=== PATIENT | female | born 1985 | race African-American/Black ===

== ENCOUNTER 2016-11-13 00:46 | Emergency (ER) | payer MEDICAID ==
[~2016-11-13] VITALS: Ht 149.9 cm; Wt 39.0 kg
[2016-11-13 06:00] VITALS: BP 105/51
== END 2016-11-13 06:01 | disposition home or self-care (01) ==
LOC: ER 05:25
DX: R51 Headache (principal); H40.9 Unspecified glaucoma; F17.200 Nicotine dependence, unspecified, uncomplicated; F12.10 Cannabis abuse, uncomplicated
CPT/HCPCS: 70450; 81025; 99284

== ENCOUNTER 2018-10-31 22:28 | Emergency (ER) | payer OTHER ==
[~2018-10-31] VITALS: Ht 149.9 cm; Wt 81.0 kg
[2018-11-01 01:44] VITALS: BP 119/43
== END 2018-11-01 02:28 | disposition left against medical advice (07) ==
LOC: ER 22:28
DX: R51 Headache (principal); Z53.21 Procedure and treatment not carried out due to patient leaving prior to being seen by health care provider

== ENCOUNTER 2018-11-04 15:28 | Emergency (ER) | payer MEDICAID ==
[~2018-11-04] VITALS: Ht 149.9 cm; Wt 40.0 kg
[2018-11-04] MEDS ORDERED: METOCLOPRAMIDE HCL 10MG TABLET PO ONE (22:00)
[2018-11-04 22:29] LABS: CLARITY URINE TURBID (CLEAR); COLOR URINE RED (YELLOW); KETONES URINE TRACE (NEGATIVE); LEUKOCYTE ESTERASE URINE 2+ (NEGATIVE); NITRITE URINE POSITIVE (NEGATIVE); OCCULT BLOOD URINE 3+ (NEGATIVE); PROTEIN URINE 1+ (NEGATIVE); SPECIFIC GRAVITY URINE 1.022 (1.005-1.030)
[2018-11-04 23:05] LABS: *AMPHETAMINES SCREEN URINE NEGATIVE (NEGATIVE); *BARBITURATES SCREEN URINE NEGATIVE (NEGATIVE); *BENZODIAZEPINES SCREEN URINE NEGATIVE (NEGATIVE); *COCAINE SCREEN URINE NEGATIVE (NEGATIVE)
[2018-11-04 23:06] LABS: METHADONE URINE SCREEN NEGATIVE (NEGATIVE); OPIATES URINE SCREEN NEGATIVE (NEGATIVE); PHENCYCLIDINE URINE SCREEN NEGATIVE (NEGATIVE)
[2018-11-04 23:08] LABS: CANNABINOID URINE SCREEN PRESUMTIVE POSITIVE (NEGATIVE)
[2018-11-04] MEDS ORDERED: CEFTRIAXONE 1 G PREMIX 50 ML IV ONE (23:15)
[2018-11-04 23:41] LABS: CHLORIDE 102 mEq/L (98-107)
[2018-11-04 23:44] LABS: BASOPHILS % 0.5 % (0.0-2.0); EOSINOPHILS % 2.3 % (0.0-5.0); HEMATOCRIT. 33.4 % (36.0-48.0); HEMOGLOBIN. 11.6 g/dL (12.0-16.0); LYMPHOCYTES % 38.1 % (20.0-50.0); MEAN PLATELET VOLUME 8.5 fl (7.4-10.4); MONOCYTES % 8.6 % (2.0-8.0); NEUTROPHILS % 50.5 % (40.0-76.0); PLATELET 281 x1000/uL (130-400); RED BLOOD CELL COUNT 3.52 mill/uL (4.2-5.4)
[2018-11-04 23:45] LABS: ETHANOL BLOOD < 10 mg/dL
[2018-11-04 23:53] LABS: B-HCG QUANTITATIVE 704 mIU/mL (<3)
[2018-11-05 00:39] VITALS: BP 127/55
== END 2018-11-05 00:44 | disposition home or self-care (01) ==
LOC: ER 17:09
DX: O23.41 Unspecified infection of urinary tract in pregnancy, first trimester (principal); O99.321 Drug use complicating pregnancy, first trimester; F12.10 Cannabis abuse, uncomplicated; F17.210 Nicotine dependence, cigarettes, uncomplicated; Z3A.00 Weeks of gestation of pregnancy not specified; O09.521 Supervision of elderly multigravida, first trimester; Z71.6 Tobacco abuse counseling
CPT/HCPCS: 36415; 76801; 76817; 80053; 80305; 80320; 81003; 81025; 84702; 85025; 86850; 86900; 86901; 87086; 96365; 99284; 99406; J0696; J8597; Z7610; G0480